=== PATIENT | female | born 1950 | race Asian ===

== ENCOUNTER 2017-06-23 06:43 | Day surgery (SDC) | payer MEDICARE, OTHER ==
[~2017-06-23] VITALS: Ht 147.3 cm; Wt 55.5 kg
[~2017-06-23 06:43] MED LIST: SODIUM CHLORIDE 0.9% 1,000 ML IV ONE
[2017-06-23] MEDS ORDERED: METF500T4 PO (07:13)
[2017-06-23] MEDS ORDERED: HYDR25TA PO (07:13)
[2017-06-23] MEDS ORDERED: KDUR20 PO (07:13)
[2017-06-23] MEDS ORDERED: FLUT16H NASAL (07:13)
[2017-06-23] MEDS ORDERED: ATOR40TA28 PO (07:13)
[2017-06-23] MEDS ORDERED: OMEP20 PO (07:13)
[2017-06-23] MEDS ORDERED: MONT10TA21 PO (07:13)
[2017-06-23] MEDS ORDERED: BUDE10.2 IH (07:13)
[2017-06-23] MEDS ORDERED: LISI-661 PO (07:13)
[2017-06-23] MEDS ORDERED: ASPI-1182 PO (07:13)
[2017-06-23] MEDS ORDERED: MIDAZOLAM HCL 2 MG/2 ML VIAL ONE (07:39)
[2017-06-23] MEDS ORDERED: FentaNYL CITRATE-PF 100 MCG/2 ML VIAL ONE (07:39)
[2017-06-23 07:42] LABS: GLUCOSE,POINT OF CARE 98 MG/DL (70-110)
[2017-06-23] MEDS ORDERED: MethylPREDNISolone SOD SUCC 125 MG/2 ML VIAL IVP ONE (08:45)
[2017-06-23] MEDS ORDERED: MethylPREDNISolone SOD SUCC 125 MG/2 ML VIAL ONE (09:19)
[2017-06-23] MEDS ORDERED: OXYGEN THERAPY IH SCH (20:00)
== END 2017-06-23 10:35 | disposition home or self-care (01) ==
LOC: SURGERY 06:43
PROVIDERS: ATTEND Internal Medicine Critical Care Medicine
DX: J38.4 Edema of larynx (principal); B37.0 Candidal stomatitis; J82 Pulmonary eosinophilia, not elsewhere classified; I51.7 Cardiomegaly; I10 Essential (primary) hypertension; E10.9 Type 1 diabetes mellitus without complications; E78.00 Pure hypercholesterolemia, unspecified; Z98.890 Other specified postprocedural states; Z90.49 Acquired absence of other specified parts of digestive tract; Z98.51 Tubal ligation status; Z98.42 Cataract extraction status, left eye; Z98.41 Cataract extraction status, right eye; Z79.82 Long term (current) use of aspirin
CPT/HCPCS: 31623; 31624; 71010; 82962; 87015 ×2; 87070; 87101; 87147; 87205; 87220; 88108; 88312; J2250; J2930; J3010; J7030